=== PATIENT | male | born 1975 | race Caucasian/White ===

== ENCOUNTER 2023-01-08 11:55 | Inpatient (IN) | payer OTHER ==
[2023-01-08 12:45] VITALS: BMI 21.2
[2023-01-08] MEDS ORDERED: POLYETHYLENE GLYCOL (HEALTHYLAX) 3350 17 GM PACKET PO PRN (13:10)
[2023-01-08] MEDS ORDERED: BENZONATATE 200 MG CAPSULE PO PRN (13:10)
[2023-01-08] MEDS ORDERED: hydrOXYzine PAMOATE 25 MG CAPSULE (FP) PO PRN (13:10)
[2023-01-08] MEDS ORDERED: MAGNESIUM HYDROX 2400MG/30ML ORAL SUSPENSION 30 ML CUP PO PRN (13:10)
[2023-01-08] MEDS ORDERED: IBUPROFEN 400 MG TABLET (FP) PO PRN (13:10)
[2023-01-08] MEDS ORDERED: IBUPROFEN 600 MG TABLET (FP) PO PRN (13:10)
[2023-01-08] MEDS ORDERED: MAG HYDROX/AL HYDROX/SIMETH 30 ML UNIT-DOSE CUP PO PRN (13:10)
[2023-01-08] MEDS ORDERED: NICOTINE POLACRILEX 2 MG GUM BC PRN (13:10)
[2023-01-08] MEDS ORDERED: NALOXONE HCL 0.4 MG/ML VIAL IM PRN (13:10)
[2023-01-08] MEDS ORDERED: BENZOCAINE/MENTHOL (CHLORASEPTIC ) LOZENGE MM PRN (13:10)
[2023-01-08] MEDS ORDERED: ACETAMINOPHEN 325 MG TABLET (FP) PO PRN (13:10)
[2023-01-08] MEDS ORDERED: NALOXONE HCL (KLOXXADO) 8 MG SPRAY NS PRN (13:10)
[2023-01-08] MEDS ORDERED: LOPERAMIDE HCL 2 MG CAPSULE PO PRN (13:10)
[2023-01-08] MEDS ORDERED: guaiFENesin 600 MG TABLET.ER (FP) PO PRN (13:10)
[2023-01-08 15:11] LABS: HEMATOCRIT 35.6 % (35.4-49); HEMOGLOBIN 12.1 GM/dL (11.7-16.9); MCHC 33.9 g/dl (32.0-35.9); MEAN CELL VOLUME 88.5 fl (80-96); MEAN PLT VOLUME 6.6 fl (7.5-11.1); PLATELET COUNT 238 10^3/uL (134-434); RBC 4.02 M/mm3 (4.00-5.60); RDW 14.1 % (11.9-15.9)
[2023-01-08 15:20] LABS: CALCIUM 8.8 mg/dL (8.5-10.1)
[2023-01-08 15:21] LABS: ALBUMIN 3.3 g/dl (3.4-5.0); BLOOD UREA NITROGEN 14.2 mg/dL (7-18)
[2023-01-08 15:25] LABS: BILIRUBIN,TOTAL 0.5 mg/dL (0.2-1); TOT PROT 7.1 g/dl (6.4-8.2)
[2023-01-08] MEDS ORDERED: TUBERCULIN PPD 5 TU/0.1ML VIAL ID ONE ×2 (18:41→22:08)
[2023-01-08] MEDS: MELATONIN 5 MG TABLETS PO SCH (21:29)
[2023-01-08] MEDS: THIAMINE HCL 100 MG TABLET (FP) PO SCH (21:29)
[2023-01-09] MEDS: methaDONE HCL 40 MG DISPERSABLE TABLET PO SCH (07:47)
[2023-01-09] MEDS: PRENATAL VITAMINS W/ FOLIC ACID TABLET (FP) PO SCH (09:40)
[2023-01-09] MEDS: MELATONIN 5 MG TABLETS PO SCH (21:24)
[2023-01-09] MEDS: THIAMINE HCL 100 MG TABLET (FP) PO SCH (21:24)
[2023-01-10] MEDS: methaDONE HCL 40 MG DISPERSABLE TABLET PO SCH (06:11)
[2023-01-10] MEDS: PRENATAL VITAMINS W/ FOLIC ACID TABLET (FP) PO SCH (09:31)
[2023-01-10 20:17] LABS: PH,URINE 7.5 (5.0-8.0); URINE APPEARANCE CLEAR; URINE BILIRUBIN NEGATIVE (NEGATIVE); URINE COLOR YELLOW; URINE GLUCOSE (UA) NEGATIVE (NEGATIVE); URINE KETONE NEGATIVE (NEGATIVE); URINE LEUK ESTERASE NEGATIVE (NEGATIVE); URINE NITRITE NEGATIVE (NEGATIVE); URINE PROTEIN NEGATIVE (NEGATIVE); URINE UROBILINOGEN 0.2 mg/dL (0.2-1.0)
[2023-01-10] MEDS: MELATONIN 5 MG TABLETS PO SCH (21:26)
[2023-01-10] MEDS: THIAMINE HCL 100 MG TABLET (FP) PO SCH (21:26)
[2023-01-11] MEDS: methaDONE HCL 40 MG DISPERSABLE TABLET PO SCH (06:56)
[2023-01-11] MEDS: PRENATAL VITAMINS W/ FOLIC ACID TABLET (FP) PO SCH (10:15)
[2023-01-11] MEDS: MELATONIN 5 MG TABLETS PO SCH (21:24)
[2023-01-11] MEDS: THIAMINE HCL 100 MG TABLET (FP) PO SCH (21:24)
[2023-01-12] MEDS: methaDONE HCL 40 MG DISPERSABLE TABLET PO SCH (06:57)
[2023-01-12] MEDS: PRENATAL VITAMINS W/ FOLIC ACID TABLET (FP) PO SCH (09:35)
[2023-01-12] MEDS: THIAMINE HCL 100 MG TABLET (FP) PO SCH (21:47)
[2023-01-12] MEDS: MELATONIN 5 MG TABLETS PO SCH (21:47)
[2023-01-13] MEDS: methaDONE HCL 40 MG DISPERSABLE TABLET PO SCH (06:37)
[2023-01-13] MEDS: PRENATAL VITAMINS W/ FOLIC ACID TABLET (FP) PO SCH (09:39)
[2023-01-13] MEDS: THIAMINE HCL 100 MG TABLET (FP) PO SCH (21:34)
[2023-01-13] MEDS: MELATONIN 5 MG TABLETS PO SCH (21:34)
[2023-01-14] MEDS: methaDONE HCL 40 MG DISPERSABLE TABLET PO SCH (06:33)
[2023-01-14] MEDS: PRENATAL VITAMINS W/ FOLIC ACID TABLET (FP) PO SCH (09:42)
[2023-01-14] MEDS: MELATONIN 5 MG TABLETS PO SCH (22:46)
[2023-01-14] MEDS: THIAMINE HCL 100 MG TABLET (FP) PO SCH (22:46)
[2023-01-15] MEDS: methaDONE HCL 40 MG DISPERSABLE TABLET PO SCH (06:16)
[2023-01-15] MEDS: PRENATAL VITAMINS W/ FOLIC ACID TABLET (FP) PO SCH (09:45)
[2023-01-15] MEDS: THIAMINE HCL 100 MG TABLET (FP) PO SCH (21:22)
[2023-01-15] MEDS: MELATONIN 5 MG TABLETS PO SCH (21:22)
[2023-01-16] MEDS: methaDONE HCL 40 MG DISPERSABLE TABLET PO SCH (06:27)
[2023-01-16] MEDS: PRENATAL VITAMINS W/ FOLIC ACID TABLET (FP) PO SCH (09:41)
[2023-01-16] MEDS: MELATONIN 5 MG TABLETS PO SCH (22:16)
[2023-01-16] MEDS: THIAMINE HCL 100 MG TABLET (FP) PO SCH (22:16)
[2023-01-17] MEDS: methaDONE HCL 40 MG DISPERSABLE TABLET PO SCH (06:32)
[2023-01-17] MEDS: PRENATAL VITAMINS W/ FOLIC ACID TABLET (FP) PO SCH (09:31)
[2023-01-17] MEDS: MELATONIN 5 MG TABLETS PO SCH (21:45)
[2023-01-17] MEDS: THIAMINE HCL 100 MG TABLET (FP) PO SCH (21:45)
[2023-01-18] MEDS: methaDONE HCL 40 MG DISPERSABLE TABLET PO SCH (06:30)
[2023-01-18 08:58] VITALS: BP 98/59; PULSE 60; RESP 15; TEMP 97.1
[2023-01-18] MEDS: PRENATAL VITAMINS W/ FOLIC ACID TABLET (FP) PO SCH (09:11)
== END 2023-01-18 09:15 | disposition home or self-care (01) | DRG 772 ==
LOC: YASAS 11:55 → Y3E 16:48
PROVIDERS: ADMIT Allergy & Immunology; ATTEND Allergy & Immunology
PROC: HZ42ZZZ Group Counseling for Substance Abuse Treatment, Cognitive-Behavioral (ICD-10-PCS; principal; 2023-01-08)
DX: F11.20 Opioid dependence, uncomplicated (principal); F14.20 Cocaine dependence, uncomplicated; F16.20 Hallucinogen dependence, uncomplicated; F12.20 Cannabis dependence, uncomplicated; F17.210 Nicotine dependence, cigarettes, uncomplicated
CPT/HCPCS: 36415; 80053; 81003; 82962; 85027; 86780; 93005; 93010; C9803-CS; U0003; U0005